=== PATIENT | male | born 1965 ===

== ENCOUNTER 2017-09-26 15:38 | Emergency (ER) | payer SELFPAY ==
[2017-09-26 16:03] VITALS: TEMP 98.3; O2SAT 98
[2017-09-26] MEDS ORDERED: Sodium Chloride 0.9% 1,000 ML IV STA ×2 (16:55→23:32)
[2017-09-26] MEDS ORDERED: Iohexol 240 (50 ml) PO ONE (16:55)
--- NOTE | 2017-09-26 16:58 | ED PDOC ---
HPI: Abdomen Time Seen by Provider: 09/26/17 16:11 Chief Complaint (Nursing): Abdominal Pain Chief Complaint (Provider): Abd pain History Per: Patient History/Exam Limitations: no limitations Onset/Duration Of Symptoms: Days (Sunday), Waxing/Waning Additional Complaint(s): Pt. with off and on pain periumbilical and RLQ. Worse with cough, movement. No testicular pain, back pain dysuria, nausea, vomit, diarrhea. No fever. Past Medical History Reviewed: Nursing Documentation, Vital Signs Vital Signs: Last Vital Signs Temp 98.3 F 09/26/17 16:00 Pulse 85 09/26/17 16:00 Resp 18 09/26/17 16:00 BP 117/75 09/26/17 16:00 Pulse Ox 98 09/26/17 16:58 - Medical History Other PMH: hernia - Family History Family History: States: Unknown Family Hx - Social History Current smoker - smoking cessation education provided: No Alcohol: None Drugs: Denies - Home Medications Home Medications: Ambulatory Orders Medication Instructions Recorded Cyclobenzaprine [Cyclobenzaprine 10 mg PO TID #20 tab 08/02/16 HCl] Ibuprofen [Motrin] 600 mg PO Q6 #20 tab 08/02/16 oxyCODONE/Acetaminophen [Percocet 1 ea PO Q6 PRN #10 tab 08/02/16 5/325 mg Tab] Ibuprofen [Motrin Tab] 600 mg PO Q8H PRN #20 tab 08/07/16 diaZEpam [Valium] 5 mg PO Q6H PRN #15 tab 08/07/16 Lidocaine 5% [Lidoderm] 1 ea TD DAILY PRN #30 patch 08/22/16 Meloxicam [Mobic] 7.5 mg PO DAILY PRN #30 tab 08/22/16 Methocarbamol [Robaxin] 500 mg PO Q8 PRN #30 tab 08/22/16 - Allergies Allergies/Adverse Reactions: Allergies Allergy/AdvReac Type Severity Reaction Status Date / Time Penicillins Allergy RASH Verified 09/26/17 16:00 Review of Systems ROS Statement: Except As Marked, All Systems Reviewed And Found Negative Gastrointestinal: Positive for: Abdominal Pain Physical Exam - Reviewed Nursing Documentation Reviewed: Yes Vital Signs Reviewed: Yes - Physical Exam Appears: Positive for: Non-toxic, No Acute Distress Head Exam: Positive for: ATRAUMATIC, NORMAL INSPECTION, NORMOCEPHALIC Skin: Positive for: Normal Color, Warm, DRY Eye Exam: Positive for: EOMI, Normal appearance, PERRL ENT: Positive for: Normal ENT Inspection Neck: Positive for: Normal, Painless ROM Cardiovascular/Chest: Positive for: Regular Rate, Rhythm Respiratory: Positive for: CNT, Normal Breath Sounds Gastrointestinal/Abdominal: Positive for: Bowel Sounds, Soft, Tenderness (RLQ and periumbilical). Negative for: Guarding Back: Positive for: Normal Inspection. Negative for: L CVA Tenderness, R CVA Tenderness Extremity: Positive for: Normal ROM. Negative for: Tenderness, Pedal Edema Neurologic/Psych: Positive for: Alert, Oriented - Laboratory Results Result Diagrams: 09/26/17 17:32 09/26/17 17:32 Interpretation Of Abn Labs: 13.5 wbc - ECG O2 Sat by Pulse Oximetry: 98 - Progress ED Course And Treament: 1839: Stable. Dr. Parrish to fu on Ct and urine. Disposition - Clinical Impression Clinical Impression: Abdominal pain - Patient ED Disposition Is Patient to be Admitted: Transfer of Care - Disposition Disposition Time: 18:39 Condition: FAIR Patient Signed Over To: Fuad Parrish
[2017-09-26] MEDS ORDERED: Iohexol 240 (50 ml) ONE (17:09)
[2017-09-26 17:40] LABS: BASO # 0.1 K/uL (0.0-0.2); BASO % 0.6 % (0.0-2.0); EOS # 0.1 K/uL (0.0-0.7); EOS % 0.9 % (0.0-4.0); HEMOGLOBIN 14.3 g/dL (12.0-18.0); LYMPH # 3.4 K/uL (1.0-4.3); LYMPH % 25.2 % (20.0-40.0); MEAN CELL VOLUME 85.2 fl (80.0-94.0); MEAN CORPUSCULAR HEMOGLOBIN 28.2 pg (27.0-31.0); MEAN CORPUSCULAR HGB CONC 33.2 g/dL (33.0-37.0); MEAN PLATELET VOLUME 9.2 fl (7.2-11.7); MONO # 0.9 K/uL (0.0-0.8); MONO % 6.9 % (0.0-10.0); NEUT # 9.1 K/uL (1.8-7.0); NEUT % 66.4 % (50.0-75.0); RBC 5.08 Mil/uL (4.40-5.90); RED CELL DISTRIBUTION WIDTH 14.3 % (11.5-14.5); WHITE BLOOD COUNT 13.7 K/uL (4.8-10.8)
[2017-09-26 17:53] LABS: ALB/GLOB RATIO 1.3 (1.0-2.1); CALCIUM 9.1 mg/dL (8.4-10.2); GFR AFRICAN-AMERICAN > 60; GFR NON-AFRICAN AMERICAN > 60
[2017-09-26 18:04] LABS: ALT/SGPT 35 U/L (21-72); AST/SGOT 28 U/L (17-59); BLOOD UREA NITROGEN 12 mg/dl (9-20)
[2017-09-26] MEDS ORDERED: Sodium Chloride 0.9% 50 ML IV ONE (18:47)
[2017-09-26] MEDS ORDERED: Iohexol 300 100 ML IJ ONE (18:47)
[2017-09-26 21:03] LABS: URINE BILIRUBIN NEGATIVE (NEGATIVE); URINE BLOOD SMALL (NEGATIVE); URINE CLARITY CLEAR (Clear); URINE COLOR STRAW (YELLOW); URINE GLUCOSE (UA) NEG (Normal); URINE LEUKOCYTE ESTERASE NEG Leu/uL (Negative); URINE NITRATE NEGATIVE (NEGATIVE); URINE PROTEIN NEGATIVE (NEGATIVE); URINE UROBILINOGEN 0.2-1.0 mg/dL (0.2-1.0)
[2017-09-26 21:10] LABS: SQUAMOUS EPITHIAL 2 /hpf (0-5)
--- NOTE | 2017-09-26 21:31 | ED PDOC ---
- Laboratory Results Result Diagrams: 09/26/17 17:32 09/26/17 17:32 - ECG O2 Sat by Pulse Oximetry: 98 (RA) Pulse Ox Interpretation: Normal Medical Decision Making Medical Decision Making: Time: 19:00 Patient signed out to me by pending CT scan. Time:21:37 FINDINGS: Lower thorax: Minimal bilateral posterior lower lobe atelectasis or parenchymal scarring. ABDOMEN: Liver: No acute findings. Gallbladder and bile ducts: No acute findings. No radiopaque gallstones. Pancreas: No acute findings. Spleen: No acute findings. Adrenals: No acute findings. Kidneys and ureters: There is moderate dilation of both ureters proximally and tadg-cj-mzvijgjo dilation of both ureters distally but the mid portions of both ureters are normal in caliber. No radiopaque ureteral calculus. No renal collecting system dilation or perinephric fat stranding. The kidneys enhance promptly and symmetrically. Stomach and bowel: No evident acute abnormality. Appendix: Normal appendix. PELVIS: Bladder: Circumferential bladder wall thickening. Reproductive: No evident acute abnormality of the imaged structures. ABDOMEN and PELVIS: Intraperitoneal space: No free intraperitoneal fluid or air. Bones/joints: No acute findings. Soft tissues: No acute findings. Vasculature: No acute findings. No abdominal aortic aneurysm. Lymph nodes: Borderline enlarged distal paraesophageal lymph node. Increased number of nonenlarged left para-aortic lymph nodes. IMPRESSION: 1. Circumferential bladder wall thickening is suggestive of cystitis. Bladder malignancy is much less likely but cannot be excluded. 2. Segmental ureteral dilation as described above may relate to ureteral peristalsis or may represent the patient's baseline. No evidence of acute ureteral obstruction. 3. Borderline enlarged distal paraesophageal lymph node and increased number of nonenlarged left para-aortic lymph nodes, nonspecific in nature. Clinical Impression: Cystitis Upon provider evaluation patient is medically stable, and requires no further treatment in the ED at this time. Patient will be discharged with Ciprofloxacin 500mg PO for urinary tract infection and pelvic pain. Told patient to followup with primary care doctor and initiate workup for possible bladder CA. Counseling was provided and all questions were answered regarding diagnosis and need for follow up with PMD. There is agreement to discharge plan. Return if symptoms persist or worsen. Documented by Catie Ann acting as a scribe for Fuad Parrish MD. All medical record entries made by the Scribe were at my direction and personally dictated by me. I have reviewed the chart and agree that the record accurately reflects my personal performance of the history, physical exam, medical decision making, and the department course for this patient. I have also personally directed, reviewed, and agree with the discharge instructions and disposition. Disposition - Clinical Impression Clinical Impression: Cystitis - POA Present On Arrival: None - Disposition Referrals: Prachi Parker MD [Staff Provider] - Disposition: Routine/Home Disposition Time: 21:45 Condition: STABLE Prescriptions: Ciprofloxacin [Cipro] 500 mg PO BID 7 Days tab Instructions: Urinary Tract Infection in Men (DC), Pelvic Pain in Men (ED) Forms: [employer] (Niuean), [facility] ED School/Work Excuse
[2017-09-26 21:46] VITALS: BP 121/74; PULSE 82; RESP 17
--- NOTE | 2017-09-27 08:59 | CT ---
PROCEDURE: CT Abdomen and Pelvis with contrast HISTORY: abd pain COMPARISON: None. TECHNIQUE: Contrast dose: 95 mL Omnipaque 300 Radiation dose: Total exam DLP = 651.0 mGy-cm. This CT exam was performed using one or more of the following dose reduction techniques: Automated exposure control, adjustment of the mA and/or kV according to patient size, and/or use of iterative reconstruction technique. FINDINGS: LOWER THORAX: Bibasilar atelectasis. Heart size normal. LIVER: Unremarkable. No gross lesion or ductal dilatation. GALLBLADDER AND BILE DUCTS: Unremarkable. PANCREAS: Unremarkable. No gross lesion or ductal dilatation. SPLEEN: Unremarkable. ADRENALS: Unremarkable. No mass. KIDNEYS AND URETERS: No hydronephrosis. Mild prominence of both ureters. No solid mass. VASCULATURE: Unremarkable. No aortic aneurysm. BOWEL: Unremarkable. No obstruction. No gross mural thickening. APPENDIX: Normal appendix. PERITONEUM: Small fat containing umbilical hernia. No free fluid. No free air. LYMPH NODES: Prominence of a paraesophageal lymph node. Prominent left para-aortic lymph nodes. BLADDER: Underdistended limiting evaluation for wall thickening. REPRODUCTIVE: Unremarkable. BONES: No acute fracture. OTHER FINDINGS: None. IMPRESSION: No acute abdominal pelvic pathology. Nonspecific prominence of paraesophageal and left para-aortic lymph nodes. Additional findings as above.
== END 2017-09-26 21:40 | disposition home or self-care (01) ==
LOC: H.ER 15:38
DX: N30.90 Cystitis, unspecified without hematuria (principal); R10.31 Right lower quadrant pain; Z88.0 Allergy status to penicillin
CPT/HCPCS: 74177; 80053; 81003; 85025; 87086; 96361; 96374; 99283; J1885; J7040; Q9966; Q9967

== ENCOUNTER 2018-01-16 11:18 | Day surgery (SDC) | payer SELFPAY ==
[2018-01-16] MEDS ORDERED: Midazolam 2 MG/2 ML VIAL ONE (13:53)
[2018-01-16] MEDS ORDERED: Propofol 10 mg/ml Inj (20 ML) ONE (13:53)
[2018-01-16] MEDS ORDERED: Rocuronium 10 mg/ml (5 ml) ONE (13:53)
[2018-01-16] MEDS ORDERED: Clindamycin 600mg/50ml NS 600 MG/50 ML BAG IVPB ONE (13:54)
--- NOTE | 2018-01-16 13:54 | CP.SDSHP ---
Same Day Surgery H & P - History Proposed Procedure: Right inguinal hernia repair with mesh placement Pre-Op Diagnosis: Right inguinal hernia - Previous Medical/Surgical History Cardiac: Other (hx of abnromal EKG) Pulmonary: Other (hx pulmonary nodules) Pain: 4.Moderate Pain - Allergies Allergies: Allergies Penicillins Allergy (Verified 09/26/17 16:00) RASH - Physical Exam Vital Signs: Vital Signs 01/16/18 12:44 Temperature 98.2 F Pulse Rate 62 Respiratory 18 Rate Blood Pressure 104/60 O2 Sat by Pulse 96 Oximetry Neuro: WNL Heart: WNL Lungs: WNL GI: WNL - {Optional Preform as Required} Abdomen: Other (R Inguinal hernia) Integument: WNL - Impression Impression: Right inguinal hernia Pt. Evaluated Today:Candidate for Anesthesia & Procedure: Yes - Date & Time Date: 01/16/18 Time: 13:30 Short Stay Discharge - Short Stay Discharge Admitting Diagnosis/Reason for Visit: K40.90 Disposition: HOME/ ROUTINE Referrals: Rachana Mendez MD [Primary Care Provider] -
[2018-01-16] MEDS ORDERED: metroNIDAZOLE 500mg/100ml NS IVPB ONE (14:24)
[2018-01-16 14:58] VITALS: BMI 26.2
[2018-01-16] MEDS ORDERED: Oxycodone/Acetaminophen 5/325 mg Tab PO PRN ×2 (15:49→22:22)
--- NOTE | 2018-01-16 15:49 | PCM.SURG1 ---
Surgeon's Initial Post Op Note - Surgeon's Notes Surgeon: Dr. Ward Animal Cytologist: Dr. Chung PGY2, Dr. Ragland PGY2 Type of Anesthesia: General LMA Pre-Operative Diagnosis: Right inguinal hernia Operative Findings: Right inguinal hernia Post-Operative Diagnosis: Right inguinal hernia Operation Performed: Right inguinal hernia repair with mesh placement (plug and patch) Specimen/Specimens Removed: hernia sac Estimated Blood Loss: EBL {In ML}: 10 Blood Products Given: N/A Drains Used: No Drains Post-Op Condition: Good Date of Surgery/Procedure: 01/16/18 Time of Surgery/Procedure: 15:48
[2018-01-16] MEDS ORDERED: HYDROmorphone 0.5 mg/0.5 ml ISec ONE (15:58)
[2018-01-16] MEDS: HYDROmorphone 0.5 mg/0.5 ml ISec IVP PRN ×6 (16:00→17:40)
[2018-01-16 20:08] VITALS: O2SAT 94
[2018-01-16 22:01] VITALS: BP 109/69; PULSE 68; RESP 20; TEMP 98.1
--- NOTE | 2018-01-18 08:34 | OP ---
PROCEDURE DATE: 01/16/2018 SURGEON: Mone Ward MD ASSISTANTS: Dr. Chung and Dr. Ragland. ANESTHESIA: General LMA. ANESTHESIOLOGIST: Dr. Morley. PREOPERATIVE DIAGNOSIS: Right inguinal hernia. POSTOPERATIVE DIAGNOSIS: Right inguinal hernia. PROCEDURE: Right inguinal hernia repair with mesh. DESCRIPTION OF OPERATION: With the patient in the supine position under adequate general anesthesia, the right groin was prepped and draped in the usual sterile manner. A transverse incision was made in the right upper groin crease taken down through the subcutaneous tissues. The external oblique aponeurosis was identified and then incised parallel to its fibers from the external inguinal ring to the internal inguinal ring. The spermatic cord was identified and dissected as it passed over the pubic tubercle and elevated on a Maria Del Rosario drain. There was no gross direct herniation. Examination of the spermatic cord revealed a moderately-sized indirect hernia sac, which was easily dissected off the underlying cord structures and dissected back to the internal inguinal ring. The sac was opened. It was noted to contain a small amount of fluid, but no other contents. The hernia sac was suture ligated at the level of the internal inguinal ring with a 2-0 Prolene suture and the hernia sac was then excised and sent as a specimen. Examination at this point revealed moderate enlargement of the internal inguinal ring and a size small ProLoop hernia plug was positioned medial to the spermatic cord well up, below the transversalis level where it was sutured with a 2-0 Prolene suture. A 2-0 Prolene suture was then positioned at the pubic tubercle and used to affix the medial end of the flat hernia mesh, which had been trimmed to approximate the inguinal floor. The mesh was positioned beneath the spermatic cord and sutured inferiorly to the shelving edge of the inguinal ligament and superiorly to the transversalis fascia incorporating the previously placed suture at the internal ring and continuing laterally beyond the internal inguinal ring. When this had been completed, the external oblique layer was closed over the spermatic cord using running suture of 0 Vicryl. Subcutaneous tissues were approximated with 3-0 Vicryl interrupted sutures and closure was performed with running subcuticular suture of 4-0 Monocryl and Steri-Strips. Dry sterile dressing was applied. The patient tolerated the procedure well and transferred to recovery room in stable condition. Estimated blood loss for the procedure was 10 mL. Mone Ward MD [facility] # [id number]
== END 2018-01-16 22:45 | disposition home or self-care (01) ==
LOC: H.OPSURG 11:18 → H.MEDSURG1 20:09 → H.OPSURG 22:45
PROVIDERS: ATTEND Specialist
DX: K40.90 Unilateral inguinal hernia, without obstruction or gangrene, not specified as recurrent (principal); J44.9 Chronic obstructive pulmonary disease, unspecified; Z88.0 Allergy status to penicillin; Z87.891 Personal history of nicotine dependence
CPT/HCPCS: 49505; 88302; C1781; J1170; J1885; J2001; J2250; J2704; J2765; J3010; J7030